=== PATIENT | male | born 2000 | race Asian ===

== ENCOUNTER 2020-11-22 11:23 | Emergency (ER) | payer OTHER ==
[~2020-11-22] VITALS: Ht 180.3 cm; Wt 90.0 kg
[2020-11-22] MEDS ORDERED: DERMABOND TOPICAL SKIN ADHESIVE TOP ONE (14:45)
[2020-11-22 15:26] VITALS: BP 126/71
== END 2020-11-22 15:28 | disposition home or self-care (01) ==
LOC: M ED 11:23
DX: S61.012A Laceration without foreign body of left thumb without damage to nail, initial encounter (principal); W26.0XXA Contact with knife, initial encounter; Y92.009 Unspecified place in unspecified non-institutional (private) residence as the place of occurrence of the external cause; Y93.9 Activity, unspecified; Y99.9 Unspecified external cause status